=== PATIENT | female | born 1980 | race Caucasian/White ===

== ENCOUNTER 2018-08-23 09:51 | Outpatient (CLI) | payer OTHER ==
--- NOTE | 2018-08-23 15:47 | MRI Report ---
Reason: BENIGN NEOPLASM OF CONNECTIVE AND OTHER SOFT TISSU Procedure Date: 08/23/2018 Accession Number: [id number] / [id number] Procedure: MRI - Brain W/O CPT Code: FULL RESULT: EXAM: MRI BRAIN WITHOUT CONTRAST EXAM DATE: 08/23/2018 10:35 AM. 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 COMPARISON: None. TECHNIQUE: Multiplanar, multisequence T1-weighted and fluid-sensitive MR sequences of the brain were performed. Sequences optimized for routine evaluation. Other: None. IV Contrast: None. FINDINGS: Parenchyma: No evidence of acute infarct on diffusion weighted sequence. Parenchyma demonstrates normal signal intensity on T1- and T2-weighted sequences. No evidence of prior hemorrhage on susceptibility weighted sequence. Pituitary: Unremarkable. Ventricles and Extra-axial Spaces: Ventricles are symmetric and normal in size for age. Extra-axial spaces demonstrate fluid collection overlying the left temporal lobe and frontal operculum that follow CSF intensity on all sequences, consistent with arachnoid cyst. This measures approximately 5.4 x 2.4 cm in maximum axial dimensions and 6.9 cm craniocaudal. There is associated remodeling of the underlying cranium. Orbits: Unremarkable. Sinuses: Small mucus retention cyst is present in the left maxillary sinus. Mastoid air cells are clear. Major Vascular Flow Voids: Intact. IMPRESSION: 1. Fluid collection overlying the left temporal lobe and frontal operculum consistent with arachnoid cyst, a benign finding. [facility]
== END 2018-08-23 09:52 | disposition home or self-care (01) ==
LOC: DI 09:51
PROVIDERS: ATTEND Family Medicine
DX: D21.9 Benign neoplasm of connective and other soft tissue, unspecified (principal)
CPT/HCPCS: 70551